=== PATIENT | female | born 1980 | race Hispanic/Latino ===

== ENCOUNTER 2024-04-07 07:31 | Day surgery (SDC) | payer BC ==
[~2024-04-07] VITALS: Ht 162.6 cm; Wt 35.9 kg
[~2024-04-07 07:31] MED LIST: CEFAZOLIN SODIUM 2 GM/20 ML SYR IV SCH; IBLOOD GLUCOSE TEST STRIP 1 EA TEST VI PRN; IRON325 M1 PO; KETOROLAC TROMETHAMINE 30 MG/ML VIAL ONE; LACTATED RINGER'S 1,000 ML IV SCH; LIDOCAINE HCL 1% 5 ML SDV INJ ONE; TRANEXAMIC ACID 2,000 MG in SODIUM CHLORIDE 0.9% 100 ML IV SCH
[2024-04-07 07:49] VITALS: BP 124/73
[2024-04-07] MEDS ORDERED: KETOROLAC TROMETHAMINE 15 MG/ML VIAL IV PRN (08:30)
[2024-04-07] MEDS ORDERED: HYDROCODONE/ACETA 5/325 TAB PO PRN (08:30)
[2024-04-07] MEDS ORDERED: fentaNYL citrate 100 MCG/2 ML VIAL ONE (08:34)
[2024-04-07] MEDS ORDERED: MIDAZOLAM HCL 2 MG/2 ML VIAL ONE (08:34)
[2024-04-07] MEDS ORDERED: DEXAMETHASONE SOD PHOS 4 MG/ML VIAL ONE (08:35)
[2024-04-07] MEDS ORDERED: propofoL 200 MG/20 ML VIAL ONE (08:35)
[2024-04-07] MEDS ORDERED: ondansetron HCL 4 MG/2 ML VIAL ONE (08:35)
[2024-04-07] MEDS ORDERED: LIDOCAINE HCL 2% 5 ML SDV ONE (08:36)
[2024-04-07] MEDS ORDERED: ACETAMINOPHEN 1,000 MG/100 ML VIAL ONE (08:36)
[2024-04-07] MEDS ORDERED: KETOROLAC TROMETHAMINE 30 MG/ML VIAL ONE (08:52)
[2024-04-07] MEDS ORDERED: DICLOFENAC SOD 75 MG TABEC PO SCH ×2 (09:00→21:00)
[2024-04-07] MEDS ORDERED: DICLOFENAC SODI75 MG PO (09:07)
[2024-04-07] MEDS ORDERED: HYDROCODON-ACE1 EA10 PO (09:08)
[2024-04-07] MEDS ORDERED: fentaNYL citrate 50 MCG/ML SDV IV PRN (09:15)
[2024-04-07] MEDS ORDERED: IBLOOD GLUCOSE TEST STRIP 1 EA TEST VI PRN (09:15)
[2024-04-07] MEDS ORDERED: droPERidol 5 MG/2 ML VIAL IV PRN (09:15)
[2024-04-07] MEDS ORDERED: NALOXONE HCL 0.4 MG SYR IV PRN (09:15)
[2024-04-07] MEDS ORDERED: ondansetron HCL 4 MG/2 ML VIAL IV PRN (09:15)
--- NOTE | 2024-04-07 09:23 | NUR ---
04/07/24 0923 Usha Schreiber 0913- PT ARRIVES TO PACU, NO RESPONSE TO NOXIOUS STIMULI. VSS ON 6L VIA MASK, RR EVEN AND UNLABORED. [id number]-CRYO CUFF APPLIED TO R KNEE, PER ORDERS.
[2024-04-07 09:36] VITALS: BP 106/52
--- NOTE | 2024-04-07 09:40 | NUR ---
patient returns from PACU via bed. report taken from SD Kerr. patient is awake, but still feels a little sleepy. She denies any nausea. she reports her pain a 5/10. Dressing has a scant amount of pink drainage. Water and crackers provided to patient. vital signs obtaiend and wdl. patient denies any needs at this time.
--- NOTE | 2024-04-07 10:10 | NUR ---
rounding on patient. she states that he pain is a 5/10 still. She was able to eat and drink some water without any nausea/vomiting. I have offered pain medication at this time and she agreed. She denies needing to urinate at this time.
[2024-04-07 10:39] VITALS: BP 119/81
--- NOTE | 2024-04-07 10:41 | NUR ---
Patient up to use the restroom. She walks with a steady gait and denies any significant pain. She is able to void 300mL. Hourly vital signs obtained and then patient allowed to get dressed. dressing is intact and still a scant amount of pink drainage on bandage. She denies any nausea/vomiting and she states her pain is tolerable and feels slightly better after walking.
--- NOTE | 2024-04-07 10:50 | NUR ---
Patient has met all discharge criteria at this time. Discharge instructions were reveiwed in detail with patient and family with the use of a remote cutting department supervisor. All questions were answered and patient expressed understanding. Patient was then discharged via wheelchair where her son and daugther are to take her home.
[2024-04-07] MEDS ORDERED: SEVOFLURANE 250 ML BTL INH ONE (12:40)
--- NOTE | 2024-04-10 06:57 | OR ---
[facility] [address], [place] [address] Signed DATE OF OPERATION: 04/07/2024 SURGEON: Mell Walker MD PREOPERATIVE DIAGNOSIS: Medial meniscus tear, right knee. POSTOPERATIVE DIAGNOSIS: Medial meniscus tear, right knee. PROCEDURE PERFORMED: Right knee arthroscopy with partial medial meniscectomy. RAND SEWER: None. ANESTHESIA: General. BLOOD LOSS: Minimal. BRIEF HISTORY: Silvia is a 44-year-old female with pain and instability in her knee. Nonoperative treatment was unsuccessful and she wished to proceed with arthroscopic debridement. Risks, benefits, and alternatives were discussed and she understood and wished to proceed. Once consent was obtained, she was taken to the operating room. After adequate anesthesia, she was placed on the operating room table. The left leg was flexed, abducted and externally rotated on a well-padded leg aparicio. The right was placed in well-padded leg aparicio with no tourniquet. The leg was prepped and draped in a standard sterile fashion. The portal sites were injected with 0.25% Marcaine with epinephrine. The standard inferolateral and superolateral portals were made and the scope was introduced into the knee. 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 The medial and lateral gutters were clear. ACL and PCL were intact. Lateral compartment was intact. Medial compartment showed a diffuse chondromalacia over the tibial and femoral surfaces with small areas of grade 4 chondromalacia and several large flaps on the femur. There was posteromedial meniscus tear. Electronically Signed By: MELL WALKER MD 04/10/24 0657 PATIENT NAME: SILVIA TITUS OPERATIVE REPORT DATE OF : 78 REPORT #: [id number] PHYSICIAN: MELL WALKER MD PCP: HANNAH CLEMENTS PA-C REPORT IS CONFIDENTIAL AND NOT TO BE RELEASED WITHOUT AUTHORIZATION [facility] [address], [place] [address] Signed DESCRIPTION OF OPERATION: Standard inferomedial portal was made and the straight biter was introduced. The meniscus was trimmed back to a stable rim anteriorly and posteriorly. This was then smoothed using shaver and debris was evacuated. Two large cartilage flaps on the medial femoral condyle were then removed. The scope was then withdrawn. Portals closed with 3-0 nylon and the knee was injected with 60 mg of Toradol. Wounds were dressed with Adaptic, ABD, and Edwar wrap. She tolerated the procedure well. All sponge, needle, and instrument counts were correct. Mell Walker MD BA/KATELYN /[id number] Copies: ~ Electronically Signed By: MELL WALKER MD 04/10/24 0657 PATIENT NAME: SILVIA TITUS OPERATIVE REPORT DATE OF : 78 REPORT #: [id number] PHYSICIAN: MELL WALKER MD PCP: HANNAH CLEMENTS PA-C REPORT IS CONFIDENTIAL AND NOT TO BE RELEASED WITHOUT AUTHORIZATION
== END 2024-04-07 11:00 | disposition home or self-care (01) ==
LOC: DS 07:31
PROVIDERS: ATTEND Specialist
PROC: 0SBC4ZZ Excision of Right Knee Joint, Percutaneous Endoscopic Approach (ICD-10-PCS; principal; 2024-04-07 09:00)
DX: S83.231A Complex tear of medial meniscus, current injury, right knee, initial encounter (principal); M94.261 Chondromalacia, right knee; M17.11 Unilateral primary osteoarthritis, right knee
CPT/HCPCS: 01400; 84703; J0131; J0690; J1100; J1885; J2003; J2250; J2405; J2704; J3010; J7121

== ENCOUNTER 2025-03-26 07:05 | Day surgery (SDC) | payer BC | END 2025-03-26 15:35 | disposition home or self-care (01) | LOC: DS 07:05 | PROC: 0SRC0JZ Replacement of Right Knee Joint with Synthetic Substitute, Open Approach (ICD-10-PCS; principal; 2025-03-26) | DX: M17.11 Unilateral primary osteoarthritis, right knee (principal); K21.9 Gastro-esophageal reflux disease without esophagitis; Z79.1 Long term (current) use of non-steroidal anti-inflammatories (NSAID); Z79.899 Other long term (current) drug therapy | CPT/HCPCS: 0055T; 27447 ==